=== PATIENT | male | born 1985 | race African-American/Black ===

== ENCOUNTER 2020-06-04 11:33 | Emergency (ER) | payer SELFPAY ==
[~2020-06-04] VITALS: Ht 175.3 cm; Wt 90.7 kg
[2020-06-04] MEDS ORDERED: Amoxicillin500 MG PO (12:06)
[2020-06-04] MEDS ORDERED: HYDR1TAB94 PO (12:06)
== END 2020-06-04 12:31 | disposition home or self-care (01) ==
LOC: ER 11:33
DX: K04.7 Periapical abscess without sinus (principal); K03.81 Cracked tooth
CPT/HCPCS: 41899; 99283-25; A9270-GY

== ENCOUNTER 2023-11-10 10:30 | Emergency (ER) | payer BC ==
[~2023-11-10] VITALS: Ht 175.3 cm; Wt 95.7 kg
[2023-11-10 12:01] VITALS: BP 154/82
== END 2023-11-10 16:13 | disposition home or self-care (01) ==
LOC: ER 10:30
DX: R31.9 Hematuria, unspecified (principal); B34.9 Viral infection, unspecified; N39.0 Urinary tract infection, site not specified; Z79.899 Other long term (current) drug therapy

== ENCOUNTER → 2024-03-01 | Outpatient (CLI) | payer BC ==
[~2024-03-01] MED LIST: Amoxicillin500 MG PO; CEPH500 PO; HYDR1TAB94 PO; Protonix40 MG PO
== END | disposition home or self-care (01) ==
LOC: LAB 09:00 → LAB SHORT 09:00
DX: R10.33 Periumbilical pain (principal); R63.0 Anorexia
CPT/HCPCS: 87338

== ENCOUNTER 2024-04-14 10:45 | Day surgery (SDC) | payer BC ==
[~2024-04-14] VITALS: Ht 175.3 cm; Wt 93.6 kg
[~2024-04-14 10:45] MED LIST changes: +Lactated Ringer's 1,000 ML IV ONE; +propofoL 50 ML IV ONE
[2024-04-14] MEDS ORDERED: CARAFATE1 GM (11:08)
[2024-04-14] MEDS ORDERED: Lactated Ringer's 1,000 ML IV ONE (11:35)
[2024-04-14 12:52] VITALS: BP 127/85
--- NOTE | 2024-04-14 13:36 | NUR ---
04/14/24 1336 Delio Lanza , MAUDE, BROUGHT INTO SDU WITH PT. PT APPEARED ANXIOUS AND UNSATISFIED WITH THE REPORT GIVEN FROM DR. DEMPSEY, PROCEDURE DID NOT FIND ANY REASON FOR CHRONIC 8/10 EPIGASTRIC PAIN, RADIATING DOWN ABDOMEN, AND INTO PELVIC AREA. THIS RN EXTENSTIVELY LISTENED TO PT'S VOICED CONCERNS AND POSSIBLE REASONS FOR CHRONIC PAIN. RN CONTINUALY ENCOURAGED PT TO REFER TO PT'S PCP TO R/O OR FIND REASON FOR CHRONIC PAIN. PT APPEARED SLIGHTLY LESS ANXIOUS WHEN DISCHARGED. PT DID MENTIONED HE HAD FALLEN OFF A 6 FOOT PORCH 5 MONTHS AGO. RN ENCOURAGED PT TO REFER TO PCP FOR FOLLOW-UP.
== END 2024-04-14 13:12 | disposition home or self-care (01) ==
LOC: ORSCSDS 10:45
PROVIDERS: Internal Medicine Gastroenterology
PROC: 0DJD8ZZ Inspection of Lower Intestinal Tract, Via Natural or Artificial Opening Endoscopic (ICD-10-PCS; principal; 2024-04-14 12:00)
PROC: 0DJ08ZZ Inspection of Upper Intestinal Tract, Via Natural or Artificial Opening Endoscopic (ICD-10-PCS; principal; 2024-04-14 12:00)
DX: R19.4 Change in bowel habit (principal); R10.84 Generalized abdominal pain; R63.4 Abnormal weight loss; K44.9 Diaphragmatic hernia without obstruction or gangrene; R11.0 Nausea; Z86.16 Personal history of COVID-19
CPT/HCPCS: J2704; J7120

== ENCOUNTER → 2024-07-02 | Outpatient (CLI) | payer OTHER ==
[~2024-07-02] MED LIST changes: +CARAFATE1 GM; -Lactated Ringer's 1,000 ML IV ONE; -propofoL 50 ML IV ONE
[2024-07-02 17:20] LABS: BASOPHILS ABSOLUTE AUTO 0.02 K/mm3 (0.00-0.23); BASOPHILS PERCENT AUTO 0 % (0-2); EOSINOPHILS ABSOLUTE AUTO 0.06 K/mm3 (0.00-0.68); EOSINOPHILS PERCENT AUTO 1 % (0-6); Hematocrit 44.3 % (37.0-53.0); Hemoglobin 16.6 g/dL (13.5-17.5); IMMATURE GRAN ABSOLUTE AUTO 0.05 K/mm3 (0.00-0.10); IMMATURE GRAN PERCENT AUTO 1 % (0-1); LYMPHOCYTES ABSOLUTE AUTO 1.61 K/mm3 (0.84-5.20); LYMPHOCYTES PERCENT AUTO 19 % (21-46); MONOCYTES ABSOLUTE AUTO 0.43 K/mm3 (0.16-1.47); MONOCYTES PERCENT AUTO 5 % (4-13); Mean Corpuscular HGB Conc 37.5 g/dL (31.5-36.5); Mean Corpuscular Volume 77 fL (80-100); Mean Platelet Volume 9.1 fL (9.1-12.4); NEUTROPHILS ABSOLUTE AUTO 6.31 K/mm3 (1.96-9.15); NEUTROPHILS PERCENT AUTO 74 % (41-73); Platelet Count 188 K/mm3 (150-400); RDW Coefficient Variation 13.2 % (11.7-14.2); RDW Standard Deviation 36.8 fL (35.1-46.3); Red Blood Cell Count 5.73 M/mm3 (4.30-5.90); White Blood Cell Count 8.48 K/mm3 (4.00-11.30)
[2024-07-02 17:38] LABS: Albumin, Blood 4.4 g/dL (3.4-5.0); Albumin/Globulin Ratio 1.3 (0.8-1.8); Bilirubin, Total 1.1 mg/dL (0.1-1.0); Bun/Creatinine Ratio 10.4 (12.0-20.0); Calcium, Blood 9.6 mg/dL (8.5-10.1); Creatinine, Blood 1.34 mg/dL (0.60-1.20); Globulin, Blood 3.3 g/dL (2.2-4.0); Potassium, Blood 3.8 mmol/L (3.5-5.5); Total Protein, Blood 7.7 g/dL (6.4-8.2)
== END ==
LOC: LAB 17:17 → LAB SHORT 17:17
PROVIDERS: Physician Assistant
DX: R73.9 Hyperglycemia, unspecified (principal)
CPT/HCPCS: 80053; 83036; 85025

== ENCOUNTER → 2024-07-03 | Outpatient (CLI) | payer OTHER ==
[2024-07-03 11:54] LABS: Albumin, Blood 4.2 g/dL (3.4-5.0); Albumin/Globulin Ratio 1.2 (0.8-1.8); Bilirubin, Total 1.2 mg/dL (0.1-1.0); Calcium, Blood 9.5 mg/dL (8.5-10.1); Creatinine, Blood 1.08 mg/dL (0.60-1.20); Globulin, Blood 3.5 g/dL (2.2-4.0); Potassium, Blood 3.9 mmol/L (3.5-5.5); Total Protein, Blood 7.7 g/dL (6.4-8.2)
== END ==
LOC: LAB 10:05 → LAB SHORT 10:05
PROVIDERS: Physician Assistant
DX: E11.65 Type 2 diabetes mellitus with hyperglycemia (principal)
CPT/HCPCS: 80053